=== PATIENT | female | born 1970 | race Caucasian/White ===

== ENCOUNTER 2020-09-16 02:23 | Inpatient (IN) ==
[2020-09-16 03:16] LABS: ABS Eosinophils 0.1 10^3/ul (0-0.6); ABS Lymphocytes 1.9 10^3/ul (1.0-4.8); ABS Monocytes 0.4 10^3/ul (0-0.8); ABS Neutrophils 1.7 10^3/ul (1.5-7.7); Eosinophil % 1.4 %; Hematocrit 43 % (35-47); Hemoglobin 14.5 g/dL (12.0-16.0); Lymphocyte % 45.8 %; Mean Corpuscular HGB Conc 34 g/dL (31-36); Mean Corpuscular Hemoglobin 33 pg (27-31); Mean Corpuscular Volume 98 fL (80-97); Mean Platelet Volume 7.3 fL (7.4-10.4); Nucleated Red Blood Cells % 0.1; Platelet Count 216 10^3/uL (150-450); Red Blood Count 4.39 10^6 /uL (3.70-4.87); Red Cell Distribution Width 15 % (10-15); White Blood Count 4.1 10^3/uL (3.5-10.8)
[2020-09-16 03:33] LABS: ALT 71 U/L (7-52); AST 106 U/L (13-39); Albumin 4.1 g/dL (3.2-5.2); Albumin/Globulin Ratio 1.3 (1-3); Alkaline Phosphatase 120 U/L (34-104); Anion Gap 16 mmol/L (2-11); BUN/Creatinine Ratio 15.2 (8-20); Blood Urea Nitrogen 10 mg/dL (6-24); CO2 Carbon Dioxide 20 mmol/L (22-32); Chloride 100 mmol/L (101-111); EGFR African American 115.7 (>60); EGFR Non-African American 95.6 (>60); Globulin 3.1 g/dL (2-4); Glucose 118 mg/dL (70-100); Potassium 3.8 mmol/L (3.5-5.0); Sodium 136 mmol/L (135-145); Total Protein 7.2 g/dL (6.4-8.9)
[2020-09-16 03:34] LABS: Acetaminophen < 15 mcg/mL; Alcohol, S 313 mg/dL (<10); Salicylate < 2.50 mg/dL (<30)
[2020-09-16 03:49] LABS: TSH Ultra Thyroid Stim Horm 1.57 mcIU/mL (0.34-5.60)
[2020-09-16 03:56] LABS: Urine Appearance Clear; Urine Bilirubin Negative (Negative); Urine Blood Negative (Negative); Urine Color Straw; Urine Glucose Negative (Negative); Urine Ketones Negative (Negative); Urine Nitrite Negative (Negative); Urine Protein Negative (Negative); Urine Specific Gravity 1.004 (1.010-1.030); Urine Urobilinogen Negative (Negative)
[2020-09-16 04:09] LABS: Urine Benzodiazepine Screen Presumptive Positive (None Detect); Urine Cannabinoids Screen None Detected (None Detect); Urine Opiates Screen None Detected (None Detect)
[2020-09-16] MEDS ORDERED: Al Hydrox/Mg Hydrox/Simet LIQ 30 ML UDC PO PRN (12:11)
[2020-09-16] MEDS ORDERED: Ondansetron ODT 4 mg TAB 4 MG TAB ONE (12:15)
[2020-09-16] MEDS ORDERED: Ondansetron ODT 4 mg TAB 4 MG TAB PO ONE (12:17)
[2020-09-16] MEDS ORDERED: Nicotine GUM 4MG FRUIT FLAVOR PO PRN (12:18)
[2020-09-16] MEDS: Vitamin THERAPEUTIC TAB PO SCH (14:47)
[2020-09-16] MEDS: Multivitamins/Minerals TAB PO SCH (14:48)
[2020-09-16] MEDS: Nicotine PATCH 14 MG/24 HR PATCH TRANSDERM SCH (14:48)
[2020-09-17 07:37] LABS: Cholesterol 287 mg/dL; Triglycerides 84 mg/dL
[2020-09-17 08:15] LABS: HDL Cholesterol > 150.0 mg/dL; LDL Cholesterol 120 mg/dL
[2020-09-17] MEDS: Multivitamins/Minerals TAB PO SCH (09:09)
[2020-09-17] MEDS: Nicotine PATCH 14 MG/24 HR PATCH TRANSDERM SCH (09:10)
[2020-09-17] MEDS: Vitamin THERAPEUTIC TAB PO SCH (09:11)
[2020-09-18] MEDS: Nicotine PATCH 14 MG/24 HR PATCH TRANSDERM SCH (07:52)
[2020-09-18] MEDS: Multivitamins/Minerals TAB PO SCH (09:40)
[2020-09-18] MEDS: Vitamin THERAPEUTIC TAB PO SCH (09:41)
[2020-09-19] MEDS: Multivitamins/Minerals TAB PO SCH (07:37)
[2020-09-19] MEDS: Nicotine PATCH 14 MG/24 HR PATCH TRANSDERM SCH (07:38)
[2020-09-19] MEDS: Vitamin THERAPEUTIC TAB PO SCH (09:44)
[2020-09-20] MEDS: Nicotine PATCH 14 MG/24 HR PATCH TRANSDERM SCH (07:55)
[2020-09-20] MEDS: Vitamin THERAPEUTIC TAB PO SCH (07:56)
[2020-09-20] MEDS: Multivitamins/Minerals TAB PO SCH (09:06)
[2020-09-21] MEDS: Nicotine PATCH 14 MG/24 HR PATCH TRANSDERM SCH (09:09)
[2020-09-21] MEDS: Multivitamins/Minerals TAB PO SCH (09:11)
[2020-09-21] MEDS: Vitamin THERAPEUTIC TAB PO SCH (09:11)
[2020-09-22] MEDS: Multivitamins/Minerals TAB PO SCH (07:38)
[2020-09-22] MEDS: Vitamin THERAPEUTIC TAB PO SCH (07:41)
[2020-09-22] MEDS: Nicotine PATCH 14 MG/24 HR PATCH TRANSDERM SCH (07:41)
[2020-09-23 08:51] VITALS: BP 137/85
[2020-09-23] MEDS: Vitamin THERAPEUTIC TAB PO SCH (09:08)
[2020-09-23] MEDS: Multivitamins/Minerals TAB PO SCH (09:09)
[2020-09-23] MEDS: Nicotine PATCH 14 MG/24 HR PATCH TRANSDERM SCH (09:09)
== END 2020-09-23 12:00 | disposition home or self-care (01) | DRG 751 ==
LOC: ED 02:23 → BSU 15:00
PROVIDERS: ADMIT Psychiatry & Neurology Psychiatry; ATTEND Psychiatry & Neurology Psychiatry

== ENCOUNTER 2022-01-06 15:56 | Inpatient (IN) ==
[2022-01-06 16:48] LABS: Urine Appearance Clear; Urine Bilirubin Negative (Negative); Urine Blood Negative (Negative); Urine Color Yellow; Urine Glucose Negative (Negative); Urine Ketones Negative (Negative); Urine Nitrite Negative (Negative); Urine Protein Negative (Negative); Urine Specific Gravity 1.015 (1.002-1.030); Urine Urobilinogen Negative (Negative)
[2022-01-06 16:55] LABS: ABS Eosinophils 0.1 10^3/ul (0-0.6); ABS Monocytes 0.5 10^3/ul (0-0.8); Eosinophil % 2.2 %; Hematocrit 37 % (35-47); Hemoglobin 12.4 g/dL (12.0-16.0); Lymphocyte % 17.2 %; Mean Corpuscular HGB Conc 34 g/dL (31-36); Mean Corpuscular Hemoglobin 36 pg (27-31); Mean Corpuscular Volume 106 fL (80-97); Mean Platelet Volume 7.2 fL (7.4-10.4); Nucleated Red Blood Cells % 0.1; Platelet Count 233 10^3/uL (150-450); Red Cell Distribution Width 14 % (10-15); White Blood Count 5.7 10^3/uL (3.5-10.8)
[2022-01-06 17:22] LABS: HCG Pregnancy 2.57 mIU/mL
[2022-01-06 17:29] LABS: TSH Ultra Thyroid Stim Horm 1.38 mcIU/mL (0.34-5.60)
[2022-01-06 18:00] LABS: Urine Benzodiazepine Screen None Detected (None Detect); Urine Cannabinoids Screen None Detected (None Detect); Urine Opiates Screen Presumptive Positive (None Detect)
[2022-01-06 18:02] LABS: ALT 53 U/L (7-52); AST 67 U/L (13-39); Acetaminophen < 15 mcg/mL; Albumin 3.9 g/dL (3.2-5.2); Albumin/Globulin Ratio 1.6 (1-3); Alcohol, S < 13 mg/dL (<13); Alkaline Phosphatase 97 U/L (35-149); Anion Gap 14 mmol/L (2-11); Blood Urea Nitrogen 12 mg/dL (6-24); CO2 Carbon Dioxide 18 mmol/L (22-32); Chloride 106 mmol/L (101-111); Globulin 2.4 g/dL (2-4); Glucose 123 mg/dL (70-100); Potassium 4.6 mmol/L (3.5-5.0); Salicylate < 2.50 mg/dL (<30); Sodium 138 mmol/L (135-145); Total Protein 6.3 g/dL (6.4-8.9); eGFR CKD-EPI 66.7 (>60)
[2022-01-06] MEDS ORDERED: Al Hydrox/Mg Hydrox/Simet LIQ 30 ML UDC PO PRN (20:13)
[2022-01-07] MEDS: Vitamin THERAPEUTIC TAB PO SCH (08:22)
[2022-01-08] MEDS: Vitamin THERAPEUTIC TAB PO SCH (08:33)
[2022-01-09 07:58] VITALS: BP 161/102
[2022-01-09] MEDS: Vitamin THERAPEUTIC TAB PO SCH (08:19)
== END 2022-01-09 11:57 | disposition home or self-care (01) | DRG 751 ==
LOC: ED 15:56 → BSU 21:15 → ED 21:16 → BSU 21:39
PROVIDERS: ADMIT Psychiatry & Neurology Psychiatry; ATTEND Student in an Organized Health Care Education/Training Program

== ENCOUNTER 2024-07-11 07:38 | Inpatient (IN) ==
[2024-07-11 09:07] LABS: Hemoglobin 11.9 g/dL (11.5-14.3); Mean Corpuscular Hemoglobin 35.5 pg (27-33); Mean Corpuscular Hgb Conc 34.1 g/dL (31-36); Mean Corpuscular Volume 104.2 fL (80-97); Mean Platelet Volume 7.6 fL (7.5-11.2); Platelet Count 142 10^3/uL (150-450); Red Blood Count 3.36 10^6/uL (3.63-4.92); Red Cell Distribution Width 15.3 % (12-17); White Blood Count 2.2 10^3/uL (3.8-11.8)
[2024-07-11 09:12] LABS: Urine Appearance Clear; Urine Bilirubin Negative (Negative); Urine Blood Negative (Negative); Urine Color Yellow; Urine Glucose Negative (Negative); Urine Ketones 1+ (Negative); Urine Nitrite Negative (Negative); Urine Protein Negative (Negative); Urine Urobilinogen Negative (Negative)
[2024-07-11 09:19] LABS: ALT 234 U/L (7-52); AST 910 U/L (13-39); Acetaminophen < 15 mcg/mL; Albumin 3.9 g/dL (3.2-5.2); Albumin/Globulin Ratio 1.6 (1-3); Alcohol, S 163 mg/dL (<13); Alkaline Phosphatase 1098 U/L (35-149); Anion Gap 21 mmol/L (2-16); Blood Urea Nitrogen 8 mg/dL (6-24); CO2 Carbon Dioxide 19 mmol/L (22-32); Calcium 9.5 mg/dL (8.6-10.3); Chloride 99 mmol/L (101-111); Creatinine, Serum 0.68 mg/dL (0.51-0.95); Globulin 2.5 g/dL (2-4); Glucose 69 mg/dL (70-100); Potassium 3.9 mmol/L (3.5-5.0); Salicylate < 2.50 mg/dL (<30); Sodium 139 mmol/L (135-145); Total Bilirubin 5.3 mg/dL (0.2-1.0); Total Protein 6.4 g/dL (6.4-8.9); eGFR CKD-EPI 104.7 (>60)
[2024-07-11 09:28] LABS: ABS Lymphocytes 0.8 10^3/ul (1.0-4.8); ABS Monocytes 0.1 10^3/ul (0.0-0.9); ABS Neutrophils 1.2 10^3/ul (1.5-7.6)
[2024-07-11 09:29] LABS: Macrocytosis 1+
[2024-07-11 09:31] LABS: Urine Benzodiazepine Screen None Detected (None Detect); Urine Cannabinoids Screen None Detected (None Detect); Urine Opiates Screen Presumptive Positive (None Detect)
[2024-07-11 09:34] LABS: TSH Ultra Thyroid Stim Horm 0.49 mcIU/mL (0.34-5.60)
[2024-07-11 10:12] LABS: Lipase < 10 U/L (11.0-82.0)
[2024-07-11 11:10] LABS: INR 0.96 (0.85-1.14)
[2024-07-11] MEDS: Lactated Ringers 1000 ml BAG 1,000 ML IV ONE (14:03)
[2024-07-11] MEDS ORDERED: Lorazepam PYXIS KEY PRN ×3 (16:54→23:07)
[2024-07-11] MEDS: LORazepam 2 mg VIAL 1 ml IV PUSH ONE ×3 (16:59→23:10)
[2024-07-11 17:55] LABS: Direct Bilirubin 3.1 mg/dL (0.03-0.18)
[2024-07-11 18:30] LABS: Hepatitis B Surface Antigen Nonreactive (Nonreactive)
[2024-07-11 18:35] LABS: Hepatitis A Ab IgM Negative (Negative); Hepatitis B Core IgM Nonreactive (Nonreactive)
[2024-07-11 18:47] LABS: Hepatitis C Antibody Negative (Negative)
[2024-07-11] MEDS: Thiamine 100 MG/ML 2 ml VIAL 100 MG, Folic Acid IV 1 MG, Multiple Vitamin IV ADULT 10 M... IV ONE (20:28)
[2024-07-12] MEDS ORDERED: Lorazepam PYXIS KEY PRN (02:03)
[2024-07-12] MEDS: LORazepam 2 mg VIAL 1 ml IV PUSH ONE (02:14)
[2024-07-12] MEDS: LORazepam 2 mg VIAL 1 ml IV PUSH SCH (04:38)
[2024-07-12 05:06] LABS: INR 0.99 (0.85-1.14)
[2024-07-12 05:11] LABS: Hematocrit 29.3 % (35-45); Hemoglobin 10.4 g/dL (11.5-14.3); Mean Corpuscular Hemoglobin 36.3 pg (27-33); Mean Corpuscular Hgb Conc 35.5 g/dL (31-36); Mean Corpuscular Volume 102.4 fL (80-97); Red Blood Count 2.86 10^6/uL (3.63-4.92); Red Cell Distribution Width 14.9 % (12-17); White Blood Count 1.6 10^3/uL (3.8-11.8)
[2024-07-12 06:07] LABS: Macrocytosis 1+; Mean Platelet Volume 8.3 fL (7.5-11.2); Platelet Count 105 10^3/uL (150-450)
[2024-07-12 06:09] LABS: ABS Lymphocytes 0.7 10^3/ul (1.0-4.8); ABS Neutrophils 0.9 10^3/ul (1.5-7.6)
[2024-07-12 06:10] LABS: ABS Monocytes 0.1 10^3/ul (0.0-0.9)
[2024-07-12 06:28] LABS: Potassium 4.2 mmol/L (3.5-5.0)
[2024-07-12 06:30] LABS: Albumin 3.5 g/dL (3.2-5.2); Albumin/Globulin Ratio 1.6 (1-3); Calcium 9.3 mg/dL (8.6-10.3); Creatinine, Serum 0.77 mg/dL (0.51-0.95); Globulin 2.2 g/dL (2-4); Magnesium 1.7 mg/dL (1.9-2.7); Total Bilirubin 6.5 mg/dL (0.2-1.0); Total Protein 5.7 g/dL (6.4-8.9); eGFR CKD-EPI 92.8 (>60)
[2024-07-12] MEDS: Multivitamins/Minerals TAB PO SCH (09:20)
[2024-07-12] MEDS: HYDROcodone/ACETAMIN 5/325 mg TAB PO PRN (20:30)
[2024-07-13 07:19] LABS: Potassium 3.7 mmol/L (3.5-5.0)
[2024-07-13 07:20] LABS: AST 541 U/L (13-39)
[2024-07-13 07:21] LABS: Anion Gap 11 mmol/L (2-16); Blood Urea Nitrogen 6 mg/dL (6-24); CO2 Carbon Dioxide 28 mmol/L (22-32); Calcium 9.2 mg/dL (8.6-10.3); Chloride 100 mmol/L (101-111); Creatinine, Serum 0.56 mg/dL (0.51-0.95); Glucose 107 mg/dL (70-100); Sodium 139 mmol/L (135-145); eGFR CKD-EPI 109.7 (>60)
[2024-07-13 07:22] LABS: ALT 173 U/L (7-52); Albumin 3.1 g/dL (3.2-5.2); Albumin/Globulin Ratio 1.7 (1-3); Alkaline Phosphatase 817 U/L (35-149); Globulin 1.8 g/dL (2-4); Magnesium 1.7 mg/dL (1.9-2.7); Total Protein 4.9 g/dL (6.4-8.9)
[2024-07-13 07:53] LABS: ABS Lymphocytes 0.9 10^3/uL (1.0-4.8); ABS Monocytes 0.1 10^3/uL (0.0-0.9); ABS Neutrophils 0.4 10^3/uL (1.5-7.6); Anisocytosis 1+; Eosinophil % 0.7 %; Hematocrit 27.2 % (35-45); Hemoglobin 9.3 g/dL (11.5-14.3); Lymphocyte % 62.9 %; Macrocytosis 1+; Mean Corpuscular Hemoglobin 35.5 pg (27-33); Mean Corpuscular Hgb Conc 34.3 g/dL (31-36); Mean Corpuscular Volume 103.6 fL (80-97); Mean Platelet Volume 8.7 fL (7.5-11.2); Nucleated Red Blood Cells % 0.2 %/100WBC (0.0-0.8); Platelet Count 77 10^3/uL (150-450); Red Blood Count 2.63 10^6/uL (3.63-4.92); Red Cell Distribution Width 15.5 % (12-17); Target Cells 1+; White Blood Count 1.4 10^3/uL (3.8-11.8)
[2024-07-13 08:02] LABS: Folate 14.31 ng/mL (5.90-24.80); Vitamin B12 368 pg/mL (180-914)
[2024-07-13] MEDS ORDERED: Senna TAB 8.6 mg TAB PO PRN (09:03)
[2024-07-13] MEDS ORDERED: Polyethylene Glycol 3350 17 GM PACKET PO PRN (09:03)
[2024-07-13] MEDS ORDERED: Magnesium Hydroxide LIQ 30 ML UDC PO PRN (09:03)
[2024-07-13] MEDS ORDERED: Magnesium Sulfate IV 1GM/100ML 1 GM/100 ML BAG IV ONE (09:24)
[2024-07-13] MEDS: Magnesium Sulfate 2 gm BAG 2 GM/50 ML BAG IVPB ONE (09:27)
[2024-07-13 09:29] LABS: .Transferrin 151 mg/dL (203-362); Total Iron Binding Capacity 211 mcg/dL (250-450)
[2024-07-13] MEDS: HYDROcodone/ACETAMIN 5/325 mg TAB PO PRN (20:54)
[2024-07-13] MEDS: Magnesium Hydroxide LIQ 30 ML UDC PO SCH (20:54)
[2024-07-14 06:13] LABS: Albumin 3.3 g/dL (3.2-5.2); Albumin/Globulin Ratio 1.8 (1-3); Calcium 9.7 mg/dL (8.6-10.3); Creatinine, Serum 0.73 mg/dL (0.51-0.95); Globulin 1.8 g/dL (2-4); Magnesium 1.6 mg/dL (1.9-2.7); Potassium 3.8 mmol/L (3.5-5.0); Total Bilirubin 4.5 mg/dL (0.2-1.0); Total Protein 5.1 g/dL (6.4-8.9); eGFR CKD-EPI 98.9 (>60)
[2024-07-14 08:08] LABS: Hematocrit 26.1 % (35-45); Hemoglobin 9.1 g/dL (11.5-14.3); Mean Corpuscular Hemoglobin 36.6 pg (27-33); Mean Corpuscular Hgb Conc 34.9 g/dL (31-36); Mean Corpuscular Volume 104.9 fL (80-97); Mean Platelet Volume 8.2 fL (7.5-11.2); Platelet Count 74 10^3/uL (150-450); Red Blood Count 2.49 10^6/uL (3.63-4.92); Red Cell Distribution Width 16.1 % (12-17); White Blood Count 1.9 10^3/uL (3.8-11.8)
[2024-07-14 08:09] LABS: ABS Monocytes 0.2 10^3/uL (0.0-0.9); ABS Neutrophils 0.7 10^3/uL (1.5-7.6); ABS Nucleated RBC 0.01 10^3/ul; Eosinophil % 1.8 %; Macrocytosis 1+; Nucleated Red Blood Cells % 0.6 %/100WBC (0.0-0.8); Target Cells 2+
[2024-07-14 09:24] LABS: Herpes Simplex Virus I IgG AB Positive (Negative); Herpes Simplex Virus II IgG AB Negative (Negative)
[2024-07-14 09:25] LABS: Cytomegalovirus IgG Antibody Positive (Negative)
[2024-07-14 10:06] VITALS: BP 133/88
== END 2024-07-14 14:28 | disposition home or self-care (01) | DRG 280 ==
LOC: ED 07:38 → EDHOLD 07-12 02:27 → SUATTDRO 07-12 02:27 → MED 07-12 15:14
PROVIDERS: ADMIT Student in an Organized Health Care Education/Training Program; ATTEND Internal Medicine